=== PATIENT | male | born 1995 | race Caucasian/White ===

== ENCOUNTER 2020-02-26 19:24 | Emergency (ER) | payer OTHER, SELFPAY ==
[2020-02-26 19:28] VITALS: BP 133/84; PULSE 89; RESP 20; TEMP 36.2; O2SAT 99
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
[2020-02-26] MEDS: NAPROXEN 500 MG TABLET PO (20:04)
[2020-02-26 20:20] VITALS: BP 146/79; PULSE 76; RESP 16; TEMP 37.1; O2SAT 98
== END 2020-02-26 20:21 | disposition home or self-care (01) ==
PROVIDERS: Emergency Provider Emergency Medicine
DX: R20.2 Paresthesia of skin (principal); S06.0X9A Concussion with loss of consciousness of unspecified duration, initial encounter; F17.210 Nicotine dependence, cigarettes, uncomplicated; Y08.02XA Assault by strike by baseball bat, initial encounter
CPT/HCPCS: 99283; A4565; A9270